=== PATIENT | female | born 1975 | race Caucasian/White ===

== ENCOUNTER → 2018-03-27 10:02 | Outpatient (CLI) | payer OTHER, SELFPAY ==
[2018-03-27 10:25] LABS: Add Manual Diff / Slide Review NO; Basophils Percent Auto 0.7 % (0-2); Eosinophils Percent Auto 2.5 % (2-4); Hematocrit 38.1 % (36-46); Hemoglobin 13.1 g/dL (12.0-16.0); Lymphocytes Percent Auto 29.9 % (25-40); Mean Corpuscular HGB Conc 34.4 % (30-36); Mean Corpuscular Hemoglobin 30.1 PG (26-34); Mean Corpuscular Volume 87.5 fL (80-100); Monocytes Percent Auto 8.4 % (3-14); Neutrophils Absolute Auto 3600 /uL (3000-5900); Neutrophils Percent Auto 58.5 % (50-75); Platelet Count 191 X10^3/uL (150-400); Red Blood Cell Count 4.36 X10^6/uL (4.0-5.2); White Blood Cell Count 6.1 X10^3/uL (4.5-11.0)
[2018-03-27 10:49] LABS: Alanine Aminotransferase 26 IU/L (9-52); Albumin 4.2 g/dL (3.5-5.0); Albumin Globulin Ratio 1.4 (1.0-2.8); Alkaline Phosphatase 62 U/L (38-126); Aspartate Aminotransferase 17 IU/L (14-36); BUN Creatinine Ratio 18.3 (6-22); Bilirubin Total 0.3 mg/dL (0.2-1.3); Blood Urea Nitrogen 11 mg/dL (7-17); Calcium 9.2 mg/dL (8.4-10.2); Carbon Dioxide 24 mmol/L (22-32); Chloride 104 mmol/L (98-107); Cholesterol 204 mg/dL (140-199); Estimated Glomerular Filt Rate > 60.0 mL/min (>60); Glucose 90 mg/dL (70-100); HDL Cholesterol 72 mg/dL (40-60); HEMOLYSIS < 15 (0-50); LDL Cholesterol Calculated 117 mg/dL (<100); Potassium 4.3 mmol/L (3.4-5.1); Sodium 141 mmol/L (137-145); Total Protein 7.2 g/dL (6.3-8.2); Triglycerides 73 mg/dL (35-150)
[2018-03-27 11:03] LABS: Vitamin D 25 Hydroxy (D3) 27.1 ng/mL (30.0-100.0)
[2018-03-27 11:04] LABS: Free T3, Triiodothyronine Free 4.56 pg/mL (2.77-5.27); Free T4, Direct Thyroxine 1.01 ng/dL (0.78-2.19)
[2018-03-27 11:18] LABS: Thyroid Stimulating Hormone 0.48 uIU/mL (0.47-4.68)
== END ==
PROVIDERS: Family Provider Family Medicine; PCP Physician Assistant; Visit Provider Physician Assistant
DX: E03.9 Hypothyroidism, unspecified (principal); E55.9 Vitamin D deficiency, unspecified; R63.5 Abnormal weight gain; Z13.220 Encounter for screening for lipoid disorders; Z13.6 Encounter for screening for cardiovascular disorders
CPT/HCPCS: 36415; 80053; 80061; 82306; 84439; 84443; 84481; 85025

== ENCOUNTER → 2018-06-02 09:24 | Outpatient (CLI) | payer OTHER, SELFPAY ==
--- NOTE | 2018-06-02 09:26 | DI.US.S_ITS ---
PROCEDURE: US PELVIC COMPLETE INDICATIONS: DUB TECHNIQUE: Real-time scanning was performed of the pelvic organs, with image documentation. Additional endovaginal scanning was necessary due to incomplete visualization of the adnexal and endometrial structures by transabdominal scanning. COMPARISON: , US, US THYROID, 06/02/2018, 9:37. FINDINGS: Transabdominal scanning: Limited scanning through the kidneys shows no hydronephrosis. No pathologic free abdominal or pelvic fluid. Endovaginal scanning: Uterus: Uterus is normal in size at 9.1 x 5.8 x 6.8 cm. The endometrium measures 9 mm in combined thickness. There is a fibroid seen along the mid uterus anteriorly, which is intramural and measures 3.2 x 1.8 x 3.2 cm. Ovaries: The right ovary measures 3.7 x 2 x 1.7 cm and demonstrates a simple appearing cyst measuring 1.6 cm, which is considered to be within physiologic limits. The left ovary measures 3.9 x 1.9 x 1.9 cm and demonstrates a complex cyst with peripheral vascularity that measures up to 1.9 cm. IMPRESSION: There is a likely left ovarian hemorrhagic cyst seen. At clinical discretion, a followup pelvic ultrasound is suggested in 6 weeks to assure resolution/ improvement. 3.2 cm uterine fibroid seen. Dictated by: Williams Miranda M.D. on 06/02/2018 at 10:59 Approved by: Willaims Miranda M.D. on 06/02/2018 at 11:00
--- NOTE | 2018-06-02 09:26 | DI.US.S_ITS ---
PROCEDURE: US THYROID INDICATIONS: NODULES; HASHIMOTOS TECHNIQUE: Real-time scanning was performed of the thyroid gland, with image documentation. COMPARISON: None. FINDINGS: There is prominent and diffusely heterogeneous. Right: Thyroid lobe measures 6.3 x 2.2 x 2.1 cm. Left: Thyroid lobe measures 4.9 x 2.2 x 2 cm. Isthmus: Or 0.5 mm thick. Nodule number: 1 Location: Left mid thyroid Size: 2.4 x 0.8 x 2.1 cm. Composition: Solid Echogenicity: Hypoechoic Shape: wider than tall. Margins: Ill-defined Echogenic foci: None Total points: 4 ACR TI-RADS category: 4, moderately suspicious. An ultrasound guided thyroid biopsy is recommended, by published criteria. Nodule number: 2 Location: Right superior thyroid Size: 3 x 1.8 x 2.1 cm, previously measuring 2.8 x 1.8 x 1.9 cm. Composition: Solid Echogenicity: Isoechoic Shape: wider than tall. Margins: Irregular Echogenic foci: None Total points: 3 ACR TI-RADS category: 3, mildly suspicious. An ultrasound guided biopsy would normally be recommended. However, this nodule was previously biopsied with benign results. Nodule number: 3 Location: Right mid thyroid Size: 1.4 x 1.2 x 1.9 cm, previously measuring 1.2 x 1.5 x 1.1 cm. Composition: Solid Echogenicity: Isoechoic Shape: wider than tall. Margins: Smooth Echogenic foci: None Total points: 5 ACR TI-RADS category: 4, moderately suspicious. An ultrasound guided biopsy would normally be recommended. However, this nodule was previously biopsied with benign results. Nodule number: 4 Location: Right inferior thyroid Size: 0.9 x 0.7 x 1.1 cm. Composition: Solid Echogenicity: Isoechoic Shape: wider than tall. Margins: Smooth Echogenic foci: None Total points: 5 ACR TI-RADS category: 4, moderately suspicious. An ultrasound followup is recommended in 1, 2, 3, and 5 years for a nodule of this size. 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 If clinically appropriate, the largest nodule on each side could be biopsied. Dictated by: Williams Miranda M.D. on 06/02/2018 at 10:52 Approved by: Williams Miranda M.D. on 06/02/2018 at 10:58
== END ==
PROVIDERS: PCP Physician Assistant; Visit Provider Physician Assistant
DX: N92.1 Excessive and frequent menstruation with irregular cycle (principal); D25.1 Intramural leiomyoma of uterus; E04.2 Nontoxic multinodular goiter; E06.3 Autoimmune thyroiditis
CPT/HCPCS: 76536; 76830; 76856

== ENCOUNTER → 2018-11-04 09:45 | Outpatient (CLI) | payer OTHER, SELFPAY ==
[2018-11-04 11:15] LABS: Free T3, Triiodothyronine Free 5.13 pg/mL (2.77-5.27); Free T4, Direct Thyroxine 1.03 ng/dL (0.78-2.19); Vitamin D 25 Hydroxy (D3) 26.6 ng/mL (30.0-100.0)
[2018-11-04 11:28] LABS: Thyroid Stimulating Hormone 0.03 uIU/mL (0.47-4.68)
== END ==
PROVIDERS: PCP Physician Assistant; Visit Provider Physician Assistant
DX: E03.9 Hypothyroidism, unspecified (principal); E55.9 Vitamin D deficiency, unspecified; F41.8 Other specified anxiety disorders; N92.0 Excessive and frequent menstruation with regular cycle; R53.83 Other fatigue
CPT/HCPCS: 36415; 82306; 84439; 84443; 84481

== ENCOUNTER → 2019-10-28 14:05 | Outpatient (CLI) | payer OTHER, SELFPAY ==
[2019-10-28 14:46] LABS: Add Manual Diff / Slide Review NO; Basophils Absolute Auto 0 /uL (0-100); Basophils Percent Auto 0.4 % (0-2); Eosinophils Absolute Auto 200 /uL (0-450); Eosinophils Percent Auto 2.1 % (2-4); Hematocrit 37.7 % (36-46); Hemoglobin 12.8 g/dL (12.0-16.0); Lymphocytes Absolute Auto 2600 /uL (1100-4500); Lymphocytes Percent Auto 29.3 % (25-40); Mean Corpuscular HGB Conc 33.9 % (30-36); Mean Corpuscular Hemoglobin 29.8 PG (26-34); Monocytes Absolute Auto 600 /uL (0-900); Monocytes Percent Auto 6.5 % (3-14); Neutrophils Absolute Auto 5600 /uL (1500-7000); Neutrophils Percent Auto 61.7 % (50-75); Platelet Count 232 X10^3/uL (150-400); Red Blood Cell Count 4.28 X10^6/uL (4.0-5.2); Red Cell Distribution Width 13.7 % (11.6-14.8)
[2019-10-28 15:06] LABS: C-Reactive Protein Quant 1.5 mg/dL (<1.0)
[2019-10-28 15:07] LABS: Rheumatoid Factor < 8.6 IU/mL (<12.0)
[2019-10-28 15:22] LABS: Free T4, Direct Thyroxine 1.04 ng/dL (0.78-2.19)
[2019-10-28 15:36] LABS: Thyroid Stimulating Hormone 0.322 uIU/mL (0.47-4.68)
[2019-10-28 16:49] LABS: Vitamin D 25 Hydroxy (D3) 17.9 ng/mL (30.0-100.0)
[2019-10-30 19:10] LABS: CCP Antibodies IgG/IgA 9 units (0-19)
[2019-10-31 21:06] LABS: ANA Screen, IFA Positive (.)
== END ==
PROVIDERS: PCP Registered Nurse Diabetes Educator; Referring Provider Registered Nurse Diabetes Educator; Visit Provider Registered Nurse Diabetes Educator
DX: E03.8 Other specified hypothyroidism (principal); E06.3 Autoimmune thyroiditis; F41.8 Other specified anxiety disorders; M25.40 Effusion, unspecified joint
CPT/HCPCS: 36415; 82306; 84439; 84443; 85025; 86038; 86140; 86200; 86430

== ENCOUNTER → 2019-11-27 09:39 | Outpatient (CLI) | payer OTHER, SELFPAY ==
--- NOTE | 2019-11-27 09:41 | DI.MRI.S_ITS ---
PROCEDURE: MR BRAIN (PITUITARY) WWO CON INDICATIONS: Biochemical evicence of central hypothyroidism. TECHNIQUE: Noncontrast sagittal and axial FLAIR, axial gradient echo, axial diffusion and ADC through the brain. Thin-slice sagittal and coronal T1 spin echo, coronal T2 fast spin echo through the pituitary. After the administration contrast, optional dynamic coronal T1 spin echo, thin-slice coronal and sagittal T1 spin echo images through the pituitary fossa; axial T1 spin echo with fat saturation through the brain. COMPARISON: None. FINDINGS: Image quality: Excellent. Pituitary Gland: There is no focal abnormal signal or enhancement within the pituitary gland. No evidence of pituitary mass lesion. Normal size and appearance of the pituitary parenchyma. Midline pituitary stalk. The sella is normal in size and appearance. No suprasellar signal abnormality. CSF Spaces: Ventricles are normal in size and shape. Basal cisterns are patent. No extra-axial fluid collections. Brain: No intracranial bleeds or mass effects. No abnormal intracranial enhancement. Gupta-white matter interface is intact. Diffusion weighted images demonstrate no acute ischemic insults. Brainstem is normal. Normal intravascular flow voids are present. Skull and face: Calvarial marrow is normal in signal. Orbits appear normal. Sinuses: Sinuses and mastoids are clear. IMPRESSION: Unremarkable MRI of the brain and pituitary. No pituitary adenoma. Dictated by: Zach Hopson M.D. on 11/27/2019 at 11:03 Approved by: Zach Hopson M.D. on 11/27/2019 at 11:07
== END ==
PROVIDERS: PCP Registered Nurse Diabetes Educator; Referring Provider Registered Nurse Diabetes Educator; Visit Provider Registered Nurse Diabetes Educator
DX: R94.6 Abnormal results of thyroid function studies (principal)
CPT/HCPCS: 70553

== ENCOUNTER → 2020-01-27 15:35 | Outpatient (CLI) | payer OTHER, SELFPAY ==
[2020-01-27 17:05] LABS: Free T4, Direct Thyroxine 1.04 ng/dL (0.78-2.19)
[2020-01-27 17:18] LABS: Thyroid Stimulating Hormone 0.322 uIU/mL (0.47-4.68)
[2020-01-27 17:20] LABS: Vitamin D 25 Hydroxy (D3) 21.8 ng/mL (30.0-100.0)
== END ==
PROVIDERS: PCP Registered Nurse Diabetes Educator; Referring Provider Registered Nurse Diabetes Educator; Visit Provider Registered Nurse Diabetes Educator
DX: E55.9 Vitamin D deficiency, unspecified (principal); F33.1 Major depressive disorder, recurrent, moderate; R94.6 Abnormal results of thyroid function studies
CPT/HCPCS: 36415; 82306; 84439; 84443; 84481

== ENCOUNTER → 2020-07-29 16:09 | Outpatient (CLI) | payer OTHER, SELFPAY ==
[2020-07-29] MEDS: COVID-19 VACC #1, MRNA(MOD) 100 MCG/0.5 ML VIAL IM (16:35)
== END ==
PROVIDERS: PCP Registered Nurse Diabetes Educator; Visit Provider Internal Medicine
DX: Z23 Encounter for immunization (principal)
CPT/HCPCS: 0011A; 91301

== ENCOUNTER → 2020-08-25 08:16 | Outpatient (CLI) | payer OTHER, SELFPAY | PROVIDERS: PCP Registered Nurse Diabetes Educator; Referring Provider Registered Nurse Diabetes Educator; Visit Provider Registered Nurse Diabetes Educator | DX: R79.89 Other specified abnormal findings of blood chemistry (principal) | CPT/HCPCS: 36415; 82306 ==

== ENCOUNTER → 2020-08-25 09:24 | Outpatient (CLI) | payer OTHER, SELFPAY ==
[2020-08-25] MEDS: COVID-19 VACC #2, MRNA(MOD) 100 MCG/0.5 ML VIAL IM (09:31)
== END ==
PROVIDERS: PCP Registered Nurse Diabetes Educator; Visit Provider Internal Medicine
DX: Z23 Encounter for immunization (principal)
CPT/HCPCS: 0012A; 91301

== ENCOUNTER → 2021-04-26 09:50 | Outpatient (CLI) | payer OTHER, SELFPAY ==
[2021-04-26 14:03] LABS: COVID19 -Nasal RAPID Negative (Negative)
== END ==
PROVIDERS: PCP Registered Nurse Diabetes Educator; Referring Provider Nurse Practitioner Family; Visit Provider Nurse Practitioner Family
DX: Z20.822 Contact with and (suspected) exposure to COVID-19 (principal); R05.9 Cough, unspecified
CPT/HCPCS: 87635

== ENCOUNTER → 2021-09-13 15:46 | Outpatient (CLI) | payer OTHER, SELFPAY ==
[2021-09-13 18:08] LABS: Vitamin D 25 Hydroxy (D3) 51.1 ng/mL (30.0-100.0)
== END ==
PROVIDERS: PCP Registered Nurse Diabetes Educator; Referring Provider Registered Nurse Diabetes Educator; Visit Provider Registered Nurse Diabetes Educator
DX: E55.9 Vitamin D deficiency, unspecified (principal)
CPT/HCPCS: 36415; 82306

== ENCOUNTER 2022-02-12 11:46 | Emergency (ER) | payer OTHER, SELFPAY ==
[2022-02-12] VITALS (11 sets, daily range): BP systolic 134–179; BP diastolic 68–99; PULSE 74–95; RESP 14–22; TEMP 36.4; O2SAT 97–100; BMI 32.1
--- NOTE | 2022-02-12 11:54 | DI.RAD.S_ITS ---
PROCEDURE: XR CHEST 1V INDICATIONS: chest pain TECHNIQUE: One view of the chest was acquired. COMPARISON: None. FINDINGS: Surgical changes and devices: None. Lungs and pleura: On this semiupright portable chest examination, no large pneumothorax or large pleural effusions are seen. No focal infiltrates are seen. Mediastinum: Mediastinal contours appear normal. Heart size is normal. Bones and chest wall: No suspicious bony lesions. Overlying soft tissues appear unremarkable. IMPRESSION: Portable chest within normal limits. Dictated by: Williams Miranda M.D. on 02/12/2022 at 11:33 Approved by: Williams Miranda M.D. on 02/12/2022 at 11:33
[2022-02-12 12:22] LABS: Add Manual Diff / Slide Review NO; Basophils Absolute Auto 0 /uL (0-100); Basophils Percent Auto 0.4 % (0-2); Eosinophils Absolute Auto 100 /uL (0-450); Eosinophils Percent Auto 2.2 % (2-4); Hematocrit 39.1 % (36-46); Hemoglobin 13.3 g/dL (12.0-16.0); Lymphocytes Absolute Auto 1900 /uL (1100-4500); Lymphocytes Percent Auto 29.7 % (25-40); Mean Corpuscular Hemoglobin 29.7 PG (26-34); Mean Corpuscular Volume 87.4 fL (80-100); Monocytes Absolute Auto 500 /uL (0-900); Monocytes Percent Auto 7.7 % (3-14); Neutrophils Absolute Auto 3900 /uL (1500-7000); Platelet Count 229 X10^3/uL (150-400); Red Blood Cell Count 4.47 X10^6/uL (4.0-5.2); Red Cell Distribution Width 12.8 % (11.6-14.8); White Blood Cell Count 6.5 X10^3/uL (4.5-11.0)
--- NOTE | 2022-02-12 12:29 | ED.ARRPALP ---
HPI - Arrhythmia/Palpitations General Chief Complaint: Arrhythmia/Palpitations Stated Complaint: chest flutters for over 24 hours, has SVT Time Seen by Provider: 02/12/22 11:59 Source: patient Mode of arrival: Ambulatory History of Present Illness HPI narrative: 46-year-old female nonsmoker with history of SVT, anxiety, adjustment disorder presents with a chief complaint of palpitations for the past few days. She denies any chest pain but has had the occasional chest pressure. She states she does not feel great but has nonspecific complaints. She is a bit weak maybe slightly lightheaded. She is had no fever or chills. Denies nausea, vomiting or diarrhea. She is had no recent travel, history of blood clot or cancer other than a small skin cancer. She denies any pain, swelling or redness in her lower extremities. She is had no travel, injury or prolonged sedentary events. She denies any change in medications, diet or stress levels Related Data Home Medications Medication Instructions Recorded Confirmed Vitamin D3 2,000 IU See Rx Instructions .Route .COMPLEX 09/21/20 09/13/21 Previous Rx's Medication Instructions Recorded aluminum chloride 20 % topical 1 applictn topical BEDTIME #60 mL 10/28/19 solution (Drysol) amitriptyline 25 mg tablet 25 mg PO BEDTIME #90 tabs 07/25/21 bupropion HCl 150 mg 24 hr tablet, 150 mg PO QAM #90 tabs 07/25/21 extended release escitalopram oxalate 10 mg tablet 15 mg PO DAILY #135 tabs 07/25/21 (Lexapro) propranolol 80 mg capsule,24 80 mg PO DAILY #90 caps 08/31/21 hr,extended release Allergies Allergy/AdvReac Type Severity Reaction Status Date / Time No Known Drug Allergies Allergy Verified 09/13/21 14:53 Review of Systems Review of Systems Narrative: GENERAL: Denies chills, fatigue, malaise, fever, sweats. HEENT: Denies sinus pain, ear pain, sore throat, difficulty swallowing, dizziness. RESPIRATORY: Denies dyspnea, cough, wheezing, hemoptysis, sputum. CARDIOVASCULAR: See HPI, GASTROINTESTINAL: Denies nausea, vomiting, abdominal pain, diarrhea, constipation, melena. : Denies dysuria, frequency, incontinence, hematuria, urinary retention. MUSCULOSKELETAL: denies weakness, joint pain, or bony pain SKIN: Denies rash, skin lesions, or other NEUROLOGIC: Denies weakness, headache, numbness, change in speech, confusion, seizures, incoordination. PSYCHIATRIC: No concerning psychosocial issues. 12 point review of systems is negative except for those stated above Patient History Medical History Abnormal Pap smear of cervix (2005) ADHD (attention deficit hyperactivity disorder) Adjustment disorder with anxiety Ankle pain (1995) Anxiety Chicken pox Chronic back pain (1999) Chronic headaches Depression Fibroids Fractures GERD (gastroesophageal reflux disease) Gaurang's disease Hayfever Hearing loss Hypothyroidism Inflammation of hand joint Irregular periods/menstrual cycles Joint swelling Migraines MRSA infection (2003) RLS (restless legs syndrome) SVT (supraventricular tachycardia) Thyroid nodule Tinnitus Surgical History Anesthesia complication History of section (2008) Family History Father Hypertension Hyperlipidemia Mental health problem Mother Skin cancer Thyroid cancer Hyperlipidemia Hypertension Brother LHON (Memo's hereditary optic neuropathy) Grandfather Skin cancer Testicular cancer Grandmother Diabetes mellitus History of heart disease Hyperlipidemia Hypertension Mental health problem Grandmother Blood clotting disorder Grandfather No problems noted. Family/Other No problems noted. Family/Other No problems noted. Family/Other No problems noted. Social History Smoking Status: Former smoker Tobacco: How many years used: 13 second hand exposure: No alcohol intake: current substance use type: does not use Smoking Status: Former smoker alcohol intake frequency: 0-2 drinks per day Exam Narrative Exam Narrative: GENERAL: [46] year old patient appears stated age. Well-developed patient, in mild distress. HEAD: Atraumatic. Normocephalic. EYES: Pupils equal round and reactive. Extraocular motions intact. No scleral icterus. No injection or drainage. ENT: Nose without bleeding, purulent drainage. Throat without erythema, tonsillar hypertrophy or exudate. Airway patent. NECK: Trachea midline. Non tender CARDIOVASCULAR: Regular rate and rhythm without murmurs, gallops, or rubs. Occasional PACs noted on monitor and palpated in accordance RESPIRATORY: Clear to auscultation. Breath sounds equal bilaterally. No wheezes, rales, or rhonchi. GASTROINTESTINAL: Abdomen soft, non-tender, nondistended. EXTREMITIES: No edema or joint tenderness. BACK: Nontender without deformity or crepitance. No flank tenderness. NEURO: AOx3. SKIN: No rash or erythema of visible areas Initial Vital Signs Initial Vital Signs: Vital Signs Temperature 97.6 F 02/12/22 11:50 Pulse Rate 95 H 02/12/22 11:50 Respiratory Rate 20 02/12/22 11:50 Blood Pressure 134/76 02/12/22 11:50 Pulse Oximetry 97 02/12/22 11:50 Oxygen Delivery Method 02/12/22 11:50 Course Orders Ordered: ED Orders 02/12/22 11:54 XR chest 1V Stat EKG-12 Lead Stat 02/12/22 12:00 EKG-12 Lead Stat 02/12/22 12:08 Complete Blood Count AUTO DIFF Stat Comprehensive Metabolic Panel Stat D Dimer Stat Free T4, Direct Thyroxine Stat Lipase Stat TSH w/ Reflex to FT4 Stat Troponin & CK Cardiac Panel Stat 02/12/22 13:31 CT angio chest PE protocol Stat Urine Microscopic Stat Sodium Chloride (Normal Saline 0.9%) 1,000 mls @ 150 mls/hr IV CONT KELSEY Last Admin: 02/12/22 12:50 Dose: 150 mls/hr Documented By: AMANDA Discontinued Medications Aspirin (Aspirin 81 Mg Chew Tab) 324 mg PO NOW ONE Stop: 02/12/22 12:00 Last Admin: 02/12/22 12:49 Dose: 324 mg Documented By: AMANDA Vital Signs Vital signs: Vital Signs - 8 hr 02/12/22 11:50 02/12/22 13:00 02/12/22 12:30 Temperature 97.6 F Pulse Rate 95 H 80 85 Respiratory Rate 20 18 18 Blood Pressure 134/76 139/85 136/89 Pulse Oximetry 97 98 98 Oxygen Delivery Method Room Air 02/12/22 13:24 02/12/22 13:25 02/12/22 13:25 Temperature Pulse Rate 91 H 84 Respiratory Rate 19 14 Blood Pressure 149/95 H Pulse Oximetry 99 100 Oxygen Delivery Method 02/12/22 13:30 02/12/22 13:30 02/12/22 13:46 Temperature Pulse Rate 81 Respiratory Rate 22 Blood Pressure 151/99 H 179/91 H Pulse Oximetry 100 Oxygen Delivery Method 02/12/22 13:46 02/12/22 14:00 02/12/22 14:00 Temperature Pulse Rate 84 79 Respiratory Rate 21 21 Blood Pressure 144/68 H Pulse Oximetry 100 100 Oxygen Delivery Method 02/12/22 14:30 02/12/22 14:30 Temperature Pulse Rate 76 Respiratory Rate 19 Blood Pressure 147/81 H Pulse Oximetry 100 Oxygen Delivery Method MDM - Arrhythmia/Palpitations Lab Data Result diagrams: 02/12/22 12:08 02/12/22 12:08 Labs: Lab Results 02/12/22 02/12/22 02/12/22 Range/Units 12:08 12:08 12:08 WBC 6.5 (4.5-11.0) X10^3/uL RBC 4.47 (4.0-5.2) X10^6/uL Hgb 13.3 (12.0-16.0) g/dL Hct 39.1 (36-46) % MCV 87.4 (80-100) fL MCH 29.7 (26-34) PG MCHC 34.0 (30-36) % RDW 12.8 (11.6-14.8) % Plt Count 229 (150-400) X10^3/uL Neut % (Auto) 60.0 (50-75) % Lymph % (Auto) 29.7 (25-40) % [place] % (Auto) 7.7 (3-14) % Eos % (Auto) 2.2 (2-4) % Baso % (Auto) 0.4 (0-2) % Neut # (Auto) 3900 (8479-6275) /uL Lymph # (Auto) 1900 (6795-8541) /uL [place] # (Auto) 500 (0-900) /uL Eos # (Auto) 100 (0-450) /uL Baso # (Auto) 0 (0-100) /uL D-Dimer 804 H (<500) ng/ml Sodium (137-145) mmol/L Potassium (3.4-5.1) mmol/L Chloride (98-107) mmol/L Carbon Dioxide (22-32) mmol/L BUN (7-17) mg/dL Creatinine (0.52-1.04) mg/dL Estimated GFR (>60) mL/min BUN/Creatinine Ratio (6-22) Glucose (70-100) mg/dL Calcium (8.4-10.2) mg/dL Total Bilirubin (0.2-1.3) mg/dL AST (14-36) IU/L ALT (<35) IU/L Alkaline Phosphatase (38-126) U/L Total Creatine Kinase (30-135) U/L CK-MB (CK-2) CK-MB (CK-2) Rel Index Troponin I (0.01-0.034) ng/mL Total Protein (6.3-8.2) g/dL Albumin (3.5-5.0) g/dL Globulin (1.7-4.1) g/dL Albumin/Globulin Ratio (1.0-2.8) Lipase (23-300) U/L TSH < 0.02 L (0.47-4.68) uIU/mL Free T4 1.28 (0.78-2.19) ng/dL 02/12/22 Range/Units 12:08 WBC (4.5-11.0) X10^3/uL RBC (4.0-5.2) X10^6/uL Hgb (12.0-16.0) g/dL Hct (36-46) % MCV (80-100) fL MCH (26-34) PG MCHC (30-36) % RDW (11.6-14.8) % Plt Count (150-400) X10^3/uL Neut % (Auto) (50-75) % Lymph % (Auto) (25-40) % [place] % (Auto) (3-14) % Eos % (Auto) (2-4) % Baso % (Auto) (0-2) % Neut # (Auto) (0341-0397) /uL Lymph # (Auto) (5413-9590) /uL [place] # (Auto) (0-900) /uL Eos # (Auto) (0-450) /uL Baso # (Auto) (0-100) /uL D-Dimer (<500) ng/ml Sodium 139 (137-145) mmol/L Potassium 3.7 (3.4-5.1) mmol/L Chloride 103 (98-107) mmol/L Carbon Dioxide 27 (22-32) mmol/L BUN 10 (7-17) mg/dL Creatinine 0.65 (0.52-1.04) mg/dL Estimated GFR > 60 (>60) mL/min BUN/Creatinine Ratio 15.4 (6-22) Glucose 104 H (70-100) mg/dL Calcium 8.9 (8.4-10.2) mg/dL Total Bilirubin 0.3 (0.2-1.3) mg/dL AST 24 (14-36) IU/L ALT 23 (<35) IU/L Alkaline Phosphatase 78 (38-126) U/L Total Creatine Kinase 36 (30-135) U/L CK-MB (CK-2) TNP CK-MB (CK-2) Rel Index TNP Troponin I < 0.012 (0.01-0.034) ng/mL Total Protein 7.3 (6.3-8.2) g/dL Albumin 3.9 (3.5-5.0) g/dL Globulin 3.4 (1.7-4.1) g/dL Albumin/Globulin Ratio 1.1 (1.0-2.8) Lipase 69 (23-300) U/L TSH (0.47-4.68) uIU/mL Free T4 (0.78-2.19) ng/dL Point of Care Testing Test Results Negative Urine Dip Bedside Urine Glucose Negative Bedside Urine Bilirubin - Negative Bedside Urine Ketone - Negative Urine Specific [place] 1.005 Bedside Urine Occult Blood +++ Bedside Urine pH 6 Bedside Urine Protein - Negative Bedside Urine Urobilinogen - Negative Bedside Urine Nitrite - Negative Bedside Urine Leukocytes - Negative Esterase Imaging Data CT scan - chest: Radiologist's Impresson: Close Chest CTA (Signed) Williams Miranda - 02/12/22 Chest X-Ray (Signed) Williams Miranda - 02/12/22 Launch?[place] [address] CT Scan Report Signed Patient: Aubrie Nolasco MR#: [id number] : 1975 Acct:[id number] Age/Sex: 46 / F Date of Service: 02/12/22 Loc: ED Accession Number: [id number] ?? Procedure: CT angio chest PE protocol Ordering Provider: Willie Taylor D.O. PROCEDURE:? CT ANGIO CHEST PE PROTOCOL ? INDICATIONS:? palpitations, chest discomfort, critical D dimer ? TECHNIQUE:? After the administration of intravenous contrast, 2 mm thick sections acquired from the pulmonary apices to the posterior costophrenic angles.? 3-dimensional maximum intensity projection (MIP) coronal and sagittal reformats were then acquired through the thorax.? For radiation dose reduction, the following was used:? automated exposure control, adjustment of mA and/or kV according to patient size.? ? COMPARISON:? [facility], CR, XR CHEST 1V, 02/12/2022, 12:14. ? FINDINGS:? Image quality:? Excellent.? ? Pulmonary arteries:? Pulmonary arteries are normal in size, and demonstrate no intraluminal filling defects to suggest central pulmonary embolism.? ? Lungs and pleura:? Lungs are clear.? No pleural effusions or pneumothorax.? Central and peripheral airways are patent.? ? Mediastinum:? Heart size is normal, without pericardial effusion.? No mediastinal or hilar adenopathy.? Thoracic aorta is normal in caliber and enhancement. Incidental note is made of a common origin of the right brachiocephalic artery and the left common carotid artery (bovine type arch). 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 Esophagus is normal in caliber.? There is a moderate hiatal hernia.? ? Bones and chest wall:? No suspicious bony lesions.? Ribs and thoracic spine appear intact throughout.? 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 Thyroid gland demonstrates a 2 cm right thyroid nodule. ?No axillary or supraclavicular adenopathy.? ? Abdomen:? Visualized upper abdominal solid organs appear normal in the early arterial phase of enhancement.? IMPRESSION:? Negative for pulmonary embolism. ? 2 cm right thyroid nodule noted.? If clinically appropriate, please consider a follow-up thyroid ultrasound for further evaluation. ? Focal C6-C7 degenerative change seen.? Please consider follow-up cervical spine MRI for further evaluation, if clinically appropriate. ? ? ? Incidental note is made of: Bovine type aortic branching pattern Moderate hiatal hernia ? Dictated by: Williams Miranda M.D. on 02/12/2022 at 12:52 ? ? Approved by: Williams Miranda M.D. on 02/12/2022 at 12:54 ? ECG Data Interpretation: [1157] EKG is normal sinus rhythm rate [91 ] and free of any signs of ischemia, occasional PACs. No ST segmental elevation or depression. No T wave inversions Discharge Plan Departure Patient Disposition: Home Clinical Impression: PAC (premature atrial contraction) Instructions: DI for Palpitations Activity Restrictions/Additional Instructions: *You have been diagnosed with [palpitations due to premature atrial contractions.] *What to do: *Please continue to take your regular medications as directed. *Please follow up with your primary care provider in 2-3 days, call for an appointment. Let them know you were seen in the Emergency Department and that we ask that you be seen in follow up. We will electronically transmit a record of today's note if your PCP is in our system *Please try to get sufficient sleep and stay well hydrated. Try to avoid significant caffeine, nicotine, alcohol and other stimulants. *Return to Emergency Department if you should have any new, worsening or concerning symptoms, such as [fever greater than 101 F, shaking chills, worsening pain, persistent vomiting or other bothersome symptoms] Prescriptions: No Action Vitamin D3 2,000 IU See Rx Instructions .ROUTE .COMPLEX Label Comments: 2 TABS PO QDAY Rx Instructions: 1 TABS PO QDAY amitriptyline 25 mg tablet 25 mg PO BEDTIME Qty: 90 3RF bupropion HCl 150 mg tablet extended release 24 hr 150 mg PO QAM Qty: 90 3RF escitalopram oxalate [Lexapro] 10 mg tablet 15 mg PO DAILY Qty: 135 3RF propranolol 80 mg capsule,extended release 24 hr 80 mg PO DAILY Qty: 90 1RF aluminum chloride [Drysol] 20 % solution 1 applictn TOP BEDTIME Qty: 60 2RF Rx Instructions: Wash treated area in the morning. Referrals: Kevin Siddiqui ARNP [Primary Care Provider] -
[2022-02-12 12:32] LABS: D Dimer 804 ng/ml (<500)
[2022-02-12 12:37] LABS: Alanine Aminotransferase 23 IU/L (<35); Albumin 3.9 g/dL (3.5-5.0); Albumin Globulin Ratio 1.1 (1.0-2.8); Alkaline Phosphatase 78 U/L (38-126); Aspartate Aminotransferase 24 IU/L (14-36); BUN Creatinine Ratio 15.4 (6-22); Bilirubin Total 0.3 mg/dL (0.2-1.3); Blood Urea Nitrogen 10 mg/dL (7-17); Calcium 8.9 mg/dL (8.4-10.2); Carbon Dioxide 27 mmol/L (22-32); Chloride 103 mmol/L (98-107); Creatine Kinase 36 U/L (30-135); Estimated Glomerular Filt Rate > 60 mL/min (>60); Globulin 3.4 g/dL (1.7-4.1); Glucose 104 mg/dL (70-100); HEMOLYSIS < 15 (0-50); Lipase 69 U/L (23-300); Potassium 3.7 mmol/L (3.4-5.1); Sodium 139 mmol/L (137-145); Total Protein 7.3 g/dL (6.3-8.2)
[2022-02-12 12:48] LABS: Troponin I < 0.012 ng/mL (0.01-0.034)
[2022-02-12] MEDS: ASPIRIN 81 MG CHEW TAB 324 MG PO (12:49)
[2022-02-12] MEDS: SODIUM CHLORIDE 0.9% 1,000 ML 150 ML IV (12:50)
[2022-02-12 13:08] LABS: TSH w/ Reflex to FT4 < 0.02 uIU/mL (0.47-4.68)
--- NOTE | 2022-02-12 13:31 | DI.CT.S_ITS ---
PROCEDURE: CT ANGIO CHEST PE PROTOCOL INDICATIONS: palpitations, chest discomfort, critical D dimer TECHNIQUE: After the administration of intravenous contrast, 2 mm thick sections acquired from the pulmonary apices to the posterior costophrenic angles. 3-dimensional maximum intensity projection (MIP) coronal and sagittal reformats were then acquired through the thorax. For radiation dose reduction, the following was used: automated exposure control, adjustment of mA and/or kV according to patient size. COMPARISON: [facility], CR, XR CHEST 1V, 02/12/2022, 12:14. FINDINGS: Image quality: Excellent. Pulmonary arteries: Pulmonary arteries are normal in size, and demonstrate no intraluminal filling defects to suggest central pulmonary embolism. Lungs and pleura: Lungs are clear. No pleural effusions or pneumothorax. Central and peripheral airways are patent. Mediastinum: Heart size is normal, without pericardial effusion. No mediastinal or hilar adenopathy. Thoracic aorta is normal in caliber and enhancement. Incidental note is made of a common origin of the right brachiocephalic artery and the left common carotid artery (bovine type arch). 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 Esophagus is normal in caliber. There is a moderate hiatal hernia. Bones and chest wall: No suspicious bony lesions. Ribs and thoracic spine appear intact throughout. 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 Thyroid gland demonstrates a 2 cm right thyroid nodule. No axillary or supraclavicular adenopathy. Abdomen: Visualized upper abdominal solid organs appear normal in the early arterial phase of enhancement. IMPRESSION: Negative for pulmonary embolism. 2 cm right thyroid nodule noted. If clinically appropriate, please consider a follow-up thyroid ultrasound for further evaluation. Focal C6-C7 degenerative change seen. Please consider follow-up cervical spine MRI for further evaluation, if clinically appropriate. Incidental note is made of: Bovine type aortic branching pattern Moderate hiatal hernia Dictated by: Williams Miranda M.D. on 02/12/2022 at 12:52 Approved by: Williams Miranda M.D. on 02/12/2022 at 12:54
[2022-02-12 13:34] LABS: Free T4, Direct Thyroxine 1.28 ng/dL (0.78-2.19)
== END 2022-02-12 15:16 | disposition home or self-care (01) ==
PROVIDERS: Emergency Provider Emergency Medicine; PCP Registered Nurse Diabetes Educator
DX: I49.1 Atrial premature depolarization (principal); R07.9 Chest pain, unspecified
CPT/HCPCS: 36415; 71045; 71275; 80053; 81003; 81025; 82550; 83690; 84439; 84443; 84484; 85025; 85379; 93005; 99284

== ENCOUNTER → 2022-03-12 10:34 | Outpatient (CLI) | payer OTHER, SELFPAY ==
--- NOTE | 2022-03-12 10:36 | DI.US.S_ITS ---
PROCEDURE: US THYROID INDICATIONS: f/u nodule TECHNIQUE: Real-time scanning was performed of the thyroid gland, with image documentation. COMPARISON: [facility], US, US THYROID, 06/02/2018, 9:37. FINDINGS: Right: Thyroid lobe measures 6.3 x 2.1 x 3 point cm, and is heterogeneous in echotexture. Left: Thyroid lobe measures 5.6 x 2.0 x 1.9 cm, and is heterogeneous in echotexture. Isthmus: 4 mm thick. Nodule number: 1 Location: Left lobe mid medial Size: 2.9 x 0.8 x 2.4 cm. Previously 2.4 x 0.8 x 2.1 cm not significantly changed Composition: Solid Echogenicity: Hypoechoic Shape: wider than tall. Margins: Smooth Echogenic foci: None Total points: 4 ACR TI-RADS category: 4 Nodule number: 2 Location: Right lobe superior Size: 3.4 x 2.1 x 2.6 cm. Previously 3.0 x 1.8 x 2.1 cm. Not significantly changed Composition: Predominantly solid Echogenicity: Isoechoic Shape: wider than tall. Margins: Smooth Echogenic foci: None Total points: 3 ACR TI-RADS category: 3 Nodule number: 3 Location: Right lobe mid Size: 1.1 x 1.2 x 1.5 cm. Previously 1.4 x 1.2 x 1.9 cm no significant change Composition: Solid Echogenicity: Isoechoic Shape: wider than tall. Margins: Ill-defined Echogenic foci: None Total points: 3 ACR TI-RADS category: 3 Nodule number: 4 Location: Right lobe inferior Size: 1.0 x 0.9 x 1.0 cm. Previously 0.9 x 0.7 x 1.1 cm no significant change Composition: Solid Echogenicity: Isoechoic Shape: wider than tall. Margins: Ill-defined Echogenic foci: None Total points: 3 ACR TI-RADS category: 3 IMPRESSION: 1. Nodule #1 at the left lobe of the thyroid gland meets TI-RADS criteria for FNA recommendation. It is not significantly changed since the previous exam. 2. Nodule #2 at the right superior lobe of the thyroid gland meets TI-RADS criteria for FNA recommendation. It is not significantly changed since the previous exam. 3. Other nodules do not meet TI-RADS criteria for FNA recommendation. Follow-up is recommended as below. ACR TI-RADS definitions and recommendations: TI-RADS 1 (benign): 0 points. FNA not needed. TI-RADS 2 (not suspicious): 2 points. FNA not needed. TI-RADS 3 (mildly suspicious): 3 points. * FNA if 2.5 cm or larger, follow up if 1.5 cm or larger (at 1, 3, and 5 years). TI-RADS 4 (moderately suspicious): 4-6 points. * FNA if 1.5 cm or larger, follow up if 1 cm or larger (at 1, 2, 3, and 5 years). TI-RADS 5 (highly suspicious): 7 points or more. * FNA if 1 cm or larger, follow up if 0.5 cm or larger (every year for 5 years). Dictated by: Indra Johnson M.D. on 03/12/2022 at 14:22 Approved by: Indra Johnson M.D. on 03/12/2022 at 14:36
== END ==
PROVIDERS: PCP Registered Nurse Diabetes Educator; Referring Provider Registered Nurse Diabetes Educator; Visit Provider Registered Nurse Diabetes Educator
DX: E04.2 Nontoxic multinodular goiter (principal); R00.2 Palpitations; R79.89 Other specified abnormal findings of blood chemistry
CPT/HCPCS: 36415; 76536; 83735; 84445; 84481

== ENCOUNTER → 2022-03-12 11:03 | Outpatient (CLI) | payer OTHER, SELFPAY ==
[2022-03-15 13:09] LABS: Thyroid Stimulating Immunoglob < 0.10 IU/L (0.00-0.55)
== END ==
PROVIDERS: PCP Registered Nurse Diabetes Educator; Referring Provider Registered Nurse Diabetes Educator; Visit Provider Registered Nurse Diabetes Educator
DX: R00.2 Palpitations (principal); R79.89 Other specified abnormal findings of blood chemistry
CPT/HCPCS: 36415; 83735; 84445; 84481

== ENCOUNTER → 2023-02-18 14:15 | Outpatient (CLI) | payer OTHER, SELFPAY ==
[2023-02-18 15:19] LABS: Add Manual Diff / Slide Review NO; Basophils Absolute Auto 100 /uL (0-100); Basophils Percent Auto 0.7 % (0-2); Eosinophils Absolute Auto 200 /uL (0-450); Eosinophils Percent Auto 2.1 % (2-4); Hematocrit 40.9 % (36-46); Hemoglobin 13.9 g/dL (12.0-16.0); Lymphocytes Absolute Auto 2500 /uL (1100-4500); Lymphocytes Percent Auto 28.2 % (25-40); Mean Corpuscular Volume 88.1 fL (80-100); Monocytes Absolute Auto 900 /uL (0-900); Monocytes Percent Auto 9.9 % (3-14); Neutrophils Absolute Auto 5200 /uL (1500-7000); Neutrophils Percent Auto 59.1 % (50-75); Platelet Count 232 X10^3/uL (150-400); Red Blood Cell Count 4.64 X10^6/uL (4.0-5.2); Red Cell Distribution Width 13.2 % (11.6-14.8); White Blood Cell Count 8.7 X10^3/uL (4.5-11.0)
[2023-02-18 15:35] LABS: Appearance Urine UA CLEAR; Bilirubin Urine UA NEGATIVE (NEGATIVE); Color Urine UA YELLOW; Glucose Urine UA NEGATIVE (Negative); Ketones Urine UA NEGATIVE (NEGATIVE); Leukocyte Esterase Urine UA 1+ (NEGATIVE); Nitrite Urine UA NEGATIVE (Negative); Occult Blood Urine UA 2+ (Negative); Protein Urine UA NEGATIVE (Negative); Urobilinogen Urine UA 0.2 E.U./dL (0.2)
[2023-02-18 15:36] LABS: Alanine Aminotransferase 20 IU/L (<35); Albumin 4.1 g/dL (3.5-5.0); Albumin Globulin Ratio 1.2 (1.0-2.8); Alkaline Phosphatase 68 U/L (38-126); Aspartate Aminotransferase 21 IU/L (14-36); BUN Creatinine Ratio 17.5 (6-22); Bilirubin Total 0.3 mg/dL (0.2-1.3); Blood Urea Nitrogen 11 mg/dL (7-17); C-Reactive Protein Quant 1.1 mg/dL (<1.0); Calcium 10.1 mg/dL (8.4-10.2); Carbon Dioxide 27 mmol/L (22-32); Chloride 100 mmol/L (98-107); Estimated Glomerular Filt Rate > 60 mL/min (>60); Globulin 3.4 g/dL (1.7-4.1); Glucose 79 mg/dL (70-100); HEMOLYSIS < 15 (0-50); Sodium 136 mmol/L (137-145); Total Protein 7.5 g/dL (6.3-8.2)
[2023-02-18 15:45] LABS: pH Urine UA 5.5 (4.5-8.0)
[2023-02-18 15:47] LABS: Bacteria Urine Few (2-10); Culture Indicated Urine Specimen Cultured; RBC Urine 1-5/HPF (0-5/HPF); Rheumatoid Factor < 8.6 IU/mL (<12.0); Squamous Epithelial Cell Urine 1-5 /HPF (0-5/HPF); WBC Urine 5-10/HPF (0-5/HPF)
[2023-02-18 15:50] LABS: Free T4, Direct Thyroxine 1.23 ng/dL (0.78-2.19)
[2023-02-18 15:53] LABS: Erythrocyte Sedimentation Rate 28 MM/HR (0-20)
[2023-02-18 16:05] LABS: Thyroid Stimulating Hormone < 0.015 uIU/mL (0.47-4.68)
[2023-02-19 20:38] LABS: CCP Antibodies IgG/IgA 1 units (0-19)
[2023-02-21 14:35] LABS: ANA Screen, IFA Positive (.)
[2023-02-23 11:29] LABS: Parvovirus B19 PCR Negative (Negative)
[2023-02-25 11:39] LABS: HLA B27 Negative (.)
== END ==
PROVIDERS: PCP Registered Nurse Diabetes Educator; Referring Provider Registered Nurse Diabetes Educator; Visit Provider Registered Nurse Diabetes Educator
DX: M25.40 Effusion, unspecified joint (principal); M25.50 Pain in unspecified joint; M54.50 Low back pain, unspecified; E03.8 Other specified hypothyroidism; E06.3 Autoimmune thyroiditis
CPT/HCPCS: 36415; 80053; 81001; 81374; 84439; 84443; 85025; 85651; 86038; 86140; 86200; 86430; 87086; 87798

== ENCOUNTER → 2023-05-13 09:02 | Outpatient (CLI) | payer OTHER, SELFPAY ==
--- NOTE | 2023-05-13 09:03 | DI.RAD.S_ITS ---
PROCEDURE: XR CHEST 2V INDICATIONS: persistent cough TECHNIQUE: 2 views of the chest were acquired. COMPARISON: [facility], , XR CHEST 1V, 02/12/2022, 12:14. FINDINGS: Surgical changes and devices: None. Lungs and pleura: Lungs are clear. No pleural effusions or pneumothorax. Mediastinum: Mediastinal contours are normal. Heart size is normal. Bones and chest wall: No suspicious bony abnormalities. Soft tissues appear unremarkable. IMPRESSION: No acute cardiopulmonary abnormality is seen. Approved by: Poly Keita M.D. on 05/13/2023 at 11:26
== END ==
PROVIDERS: PCP Registered Nurse Diabetes Educator; Referring Provider Registered Nurse Diabetes Educator; Visit Provider Registered Nurse Diabetes Educator
DX: R05.3 Chronic cough (principal)
CPT/HCPCS: 71046

== ENCOUNTER → 2023-07-17 13:18 | Outpatient (CLI) | payer OTHER, SELFPAY ==
--- NOTE | 2023-07-17 13:20 | DI.RAD.S_ITS ---
PROCEDURE: XR HIP W PEL IF DONE RT 2V INDICATIONS: sharp groin pain, limping TECHNIQUE: AP pelvis with lateral view(s) of the right hip(s). COMPARISON: None. FINDINGS: Bones: No fractures or dislocations. Pelvic ring appears intact. No suspicious bony lesions. Mild osteoarthritic changes noted. Soft tissues: The visualized bowel gas pattern is normal. No suspicious soft tissue calcifications. IMPRESSION: 1. No acute bony abnormality. 2. Mild osteoarthritis. 3. If clinical symptoms persist or clinical suspicion for internal derangement is high, consider MRI for further evaluation. Dictated by: Randy Marcum M.D. on 07/17/2023 at 17:06 Approved by: Randy Marcum M.D. on 07/18/2023 at 8:39
== END ==
PROVIDERS: PCP Registered Nurse Diabetes Educator; Referring Provider Physician Assistant; Visit Provider Physician Assistant
DX: S76.211A Strain of adductor muscle, fascia and tendon of right thigh, initial encounter (principal); M16.11 Unilateral primary osteoarthritis, right hip; X58.XXXA Exposure to other specified factors, initial encounter
CPT/HCPCS: 73502

== ENCOUNTER → 2024-01-17 10:28 | Outpatient (CLI) | payer OTHER, SELFPAY ==
[2024-01-17 10:52] LABS: Hematocrit 41.4 % (36-46); Hemoglobin 13.8 g/dL (12.0-16.0); Mean Corpuscular HGB Conc 33.3 % (30-36); Mean Corpuscular Hemoglobin 28.9 PG (26-34); Mean Corpuscular Volume 86.8 fL (80-100); Platelet Count 250 X10^3/uL (150-400); Red Blood Cell Count 4.77 X10^6/uL (4.0-5.2); White Blood Cell Count 8.5 X10^3/uL (4.5-11.0)
[2024-01-17 11:17] LABS: Alanine Aminotransferase 18 IU/L (<35); Albumin 4.2 g/dL (3.5-5.0); Albumin Globulin Ratio 1.5 (1.0-2.8); Alkaline Phosphatase 75 U/L (38-126); Aspartate Aminotransferase 21 IU/L (14-36); BUN Creatinine Ratio 21.7 (6-22); Bilirubin Total 0.6 mg/dL (0.2-1.3); Blood Urea Nitrogen 15 mg/dL (7-17); Calcium 9.6 mg/dL (8.4-10.2); Carbon Dioxide 26 mmol/L (22-32); Chloride 105 mmol/L (98-107); Cholesterol 252 mg/dL (140-199); Estimated Glomerular Filt Rate > 60 mL/min (>60); Globulin 2.8 g/dL (1.7-4.1); Glucose 108 mg/dL (70-100); HDL Cholesterol 54 mg/dL (40-60); HEMOLYSIS < 15 (0-50); LDL Cholesterol Calculated 171 mg/dL (<100); Potassium 4.6 mmol/L (3.4-5.1); Sodium 137 mmol/L (137-145); Triglycerides 135 mg/dL (35-150)
[2024-01-17 11:31] LABS: Free T3, Triiodothyronine Free 4.77 pg/mL (2.77-5.27); Free T4, Direct Thyroxine 1.16 ng/dL (0.78-2.19)
[2024-01-17 11:47] LABS: Thyroid Stimulating Hormone < 0.015 uIU/mL (0.47-4.68)
== END ==
PROVIDERS: PCP Registered Nurse Diabetes Educator; Referring Provider Registered Nurse Diabetes Educator; Visit Provider Registered Nurse Diabetes Educator
DX: E05.90 Thyrotoxicosis, unspecified without thyrotoxic crisis or storm (principal); E78.5 Hyperlipidemia, unspecified; M25.40 Effusion, unspecified joint
CPT/HCPCS: 36415; 80053; 80061; 84439; 84443; 84481; 85027

== ENCOUNTER → 2024-01-22 08:02 | Outpatient (CLI) | payer OTHER, SELFPAY ==
--- NOTE | 2024-01-22 08:04 | DI.MG.S_ITS ---
BILATERAL DIGITAL SCREENING MAMMOGRAM 3D/2D WITH CAD: 01/22/2024 CLINICAL: Baseline exam. Routine screening. No prior exams were available for comparison. The breasts are heterogeneously dense, which may obscure small masses (category c / 51-75% glandular tissue). Current study was also evaluated with a Computer Aided Detection (CAD) system. There is a possible oval equal density focal asymmetry with an obscured margin in the left breast at 12 o'clock middle depth. No other significant masses, calcifications, or other findings are seen in either breast. IMPRESSION: INCOMPLETE: NEED ADDITIONAL IMAGING EVALUATION The possible oval equal density focal asymmetry in the left breast is indeterminate. Additional views with possible ultrasound are recommended. Based on the Tyrer Cuzick model (a risk assessment model) the patient's lifetime risk is 4.8% and her 10 year risk is 0.9%. According to the ACR, ACS, and NCCN guidelines, an annual breast MRI exam along with mammogram is recommended if the patient's lifetime risk is 20% or greater. This exam was interpreted at Station ID: [id number]. NOTE: For mammograms, a report in lay terms will be sent to the patient. Approximately 15% of breast malignancies will not be visualized mammographically. In the management of a palpable breast mass, a negative mammogram must not discourage biopsy of a clinically suspicious lesion. Electronically Signed By: Anatoliy whyte/julee:01/22/2024 09:52:00 letter sent: Additional Imaging Needed ACR BI-RADS Category 0: Incomplete: Need Additional Imaging Evaluation
--- NOTE | 2024-01-22 08:04 | DI.NM.S_ITS ---
PROCEDURE: NM UPTAKE AND SCAN RADIOPHARMACEUTICAL: 13.9 ?Ci I-123 sodium iodide by mouth. INDICATIONS: eval subclinical hyperthyroidism TECHNIQUE: I-123 sodium iodide was administered orally. Anterior neck images were obtained, and iodine uptake by the thyroid gland calculated using mechanical systems engineer's software. COMPARISON: None. FINDINGS: Morphology: The thyroid gland has asymmetric activity, increased on the right and significantly decreased on the left. No 'cold' or 'hot' thyroid nodules are identified. Uptake: 6 hour thyroid uptake is 32 percent (31 percent on the right and 1 percent on the left); normal ranges are from 6-18%. 24 hour thyroid uptake is 53 percent (50 percent on the right and 3 percent on the left); normal ranges are from 10-30%. IMPRESSION: Asymmetric radiotracer uptake in the right thyroid lobe, which demonstrates increased radiotracer uptake. This is likely due to the presence the large right thyroid nodule, which may represent a toxic autonomous nodule. Recommend endocrinology referral. Dictated by: Rito Mendoza M.D. on 01/23/2024 at 13:02 Approved by: Rito Mendoza M.D. on 01/23/2024 at 13:09
== END ==
LOC: MAMMO 08:03
PROVIDERS: PCP Registered Nurse Diabetes Educator; Referring Provider Registered Nurse Diabetes Educator; Visit Provider Registered Nurse Diabetes Educator
DX: Z12.31 Encounter for screening mammogram for malignant neoplasm of breast (principal); R92.333 Mammographic heterogeneous density, bilateral breasts; E05.90 Thyrotoxicosis, unspecified without thyrotoxic crisis or storm; R94.6 Abnormal results of thyroid function studies; E04.1 Nontoxic single thyroid nodule
CPT/HCPCS: 77063; 77067; 78014; A9516

== ENCOUNTER → 2024-01-23 10:14 | Outpatient (CLI) | payer OTHER, SELFPAY ==
--- NOTE | 2024-01-23 10:15 | DI.US.S_ITS ---
PROCEDURE: US THYROID INDICATIONS: eval subclinical hyperthyroidism TECHNIQUE: Real-time scanning was performed of the thyroid gland, with image documentation. COMPARISON: [facility], US, US THYROID, 03/12/2022, 10:48. FINDINGS: Thyroid: Right lobe measures 5.3 x 2.2 x 3.2 cm. Left lobe measures 5.5 x 1.9 x 1.5 cm. Isthmus is 0.4 cm thick. Echotexture is heterogeneous. Nodule number: 1 Location: Left mid Size: 2.5 x 0.7 x 2.2 cm, previously 2.9 x 0.8 x 2.4 cm. Composition: Solid Echogenicity: Hypoechoic Shape: Wider than tall Margins: Smooth Echogenic foci: None Total points: 4 ACR TI-RADS category: Moderately suspicious Nodule number: 2 Location: Right superior Size: 3.4 x 2.2 x 2.3 cm, previously 3.4 x 2.1 x 2.6 cm. Composition: Solid Echogenicity: Hypoechoic Shape: wider than tall. Margins: Smooth Echogenic foci: None Total points: 4 ACR TI-RADS category: Moderately suspicious Nodule number: 3 Location: Right mid Size: 1.2 x 1.3 x 1.7 cm, previously 1.1 x 1.2 x 1.5 cm. Composition: Solid Echogenicity: Isoechoic Shape: wider than tall. Margins: Smooth Echogenic foci: None Total points: 3 ACR TI-RADS category: Mildly suspicious Nodule number: 4 Location: Right lateral Size: 1.3 x 0.9 x 1.6 cm, previously 1.0 x 0.9 x 1.0 cm Composition: Solid Echogenicity: Hypoechoic Shape: wider than tall. Margins: Smooth of Echogenic foci: None Total points: 4 ACR TI-RADS category: Moderately suspicious Nodule number: 5 Location: Left inferior Size: 0.7 x 0.6 x 0.8 cm Composition: Solid Echogenicity: Hypoechoic Shape: wider than tall. Margins: Smooth of Echogenic foci: None Total points: 4 ACR TI-RADS category: Moderately suspicious IMPRESSION: Multiple moderately suspicious bilateral thyroid nodules. Recommend ultrasound-guided fine needle aspiration of the 2 largest moderately suspicious nodules (nodule #1 and nodule #2) per guidelines below, overall these nodules are not significantly changed since prior. Remainder of nodules meet criteria for imaging follow-up as outlined ACR TI-RADS definitions and recommendations: TI-RADS 1 (benign): 0 points. FNA not needed. TI-RADS 2 (not suspicious): 2 points. FNA not needed. TI-RADS 3 (mildly suspicious): 3 points. * FNA if 2.5 cm or larger, follow up if 1.5 cm or larger (at 1, 3, and 5 years). TI-RADS 4 (moderately suspicious): 4-6 points. * FNA if 1.5 cm or larger, follow up if 1 cm or larger (at 1, 2, 3, and 5 years). TI-RADS 5 (highly suspicious): 7 points or more. * FNA if 1 cm or larger, follow up if 0.5 cm or larger (every year for 5 years). Approved by: Poly Keita M.D.,Ph.D. on 01/24/2024 at 3:57
== END ==
PROVIDERS: PCP Registered Nurse Diabetes Educator; Referring Provider Registered Nurse Diabetes Educator; Visit Provider Registered Nurse Diabetes Educator
DX: E05.90 Thyrotoxicosis, unspecified without thyrotoxic crisis or storm (principal); R94.6 Abnormal results of thyroid function studies; E04.2 Nontoxic multinodular goiter
CPT/HCPCS: 76536

== ENCOUNTER → 2024-02-04 11:16 | Outpatient (CLI) | payer OTHER, SELFPAY ==
[2024-02-04 14:42] LABS: Vitamin D 25 Hydroxy (D3) 47.5 ng/mL (30.0-100.0)
== END ==
PROVIDERS: PCP Registered Nurse Diabetes Educator; Referring Provider Registered Nurse Diabetes Educator; Visit Provider Registered Nurse Diabetes Educator
DX: E55.9 Vitamin D deficiency, unspecified (principal)
CPT/HCPCS: 36415; 82306

== ENCOUNTER → 2024-08-25 08:44 | Outpatient (CLI) | payer OTHER, SELFPAY ==
--- NOTE | 2024-08-25 08:46 | DI.US.S_ITS ---
MM special view LT, US breast LT limited: 08/25/2024 BI-RADS: 3 CLINICAL: 48-year old female for left diagnostic mammogram and left diagnostic breast ultrasound. Tyrer-Cuzick lifetime risk of 12.5%. No personal or first-degree family history of breast cancer. PRIOR EXAMS 01/22/2024. MAMMOGRAPHY TECHNIQUE: 2D and 3D (tomosynthesis) digital mammographic views obtained, with additional images as needed for full coverage. Current study was also evaluated with a Computer Aided Detection (CAD) system. ULTRASOUND TECHNIQUE Real-time santiago scale and color doppler imaging of the area of clinical interest was performed with image documentation. TARGETED Left Breast Ultrasound: Real-time ultrasound exam was performed focused to area of clinical and/or imaging concern. DENSITY Left: C. The breasts are heterogeneously dense, which may obscure small masses. MAMMOGRAPHY FINDINGS Left (finding-1): CC only, Central, Middle depth: There is an asymmetry seen only on one view. ULTRASOUND FINDINGS Left (finding-1): Upper at 12:00, Retroareolar, measuring 0.6 x 0.4 x 0.7 cm: Correlating with findings on mammogram there is a complicated cyst with low level echoes showing no posterior acoustic features. Doppler shows no vascularity. IMPRESSION: Left (Complicated Cyst): Upper at 12:00, Retroareolar, measuring 0.6 x 0.4 x 0.7 cm * Probably Benign. RECOMMENDATIONS Left: Upper at 12:00, Retroareolar * Six month followup with diagnostic mammography. * Six month followup with diagnostic ultrasound. OVERALL ASSESSMENT CATEGORY BI-RADS-3: Probably Benign. ELECTRONICALLY SIGNED: Az Cantu M.D. on 08/25/2024 at 10:41:33 AM PT Interpreting Station ID: [id number]
== END ==
LOC: MAMMO 08:45
PROVIDERS: PCP Registered Nurse Diabetes Educator; Referring Provider Physician Assistant; Visit Provider Physician Assistant
DX: R92.8 Other abnormal and inconclusive findings on diagnostic imaging of breast (principal); N60.02 Solitary cyst of left breast; R92.333 Mammographic heterogeneous density, bilateral breasts
CPT/HCPCS: 76642; 77065; G0279

== ENCOUNTER → 2024-11-04 14:13 | Outpatient (CLI) | payer OTHER, SELFPAY ==
--- NOTE | 2024-11-04 | PATH_ITS ---
Note [facility] Accession Number: [id number] TESTS RESULT FLAG UNITS REF RANGE LAB Clinician Provided Cytology Information No. of containers..01 Other (Miscellaneous) No. of containers..01 Previously Prepared Cytology Slide Source: LEFT THYROID NODULE #1 DIAGNOSIS: LEFT THYROID NODULE #1, FINE NEEDLE ASPIRATION. NEGATIVE FOR MALIGNANT CELLS. BETHESDA CATEGORY II. SPECIMEN CONSISTS OF A PREDOMINANT, AND HETEROGENEOUS LYMPHOID POPULATION, FEW FOLLICULAR GROUPS WITH ONCOCYTIC/HURTHLE CELL-LIKE CHANGES AND COLLOID. THESE FINDINGS RAISE THE POSSIBILITY OF LYMPHOCYTIC (PARISA) THYROIDITIS, IN THE PROPER CLINICAL CONTEXT. ANOTHER CONSIDERATION INCLUDES SAMPLING OF AN INTRATHYROIDAL LYMPH NODE. CLINICAL CORRELATION AND CORRELATION WITH LABORATORY TESTS IS RECOMMENDED, AND IF THE NODULE INCREASES IN SIZE, RE-ASPIRATION IS SUGGESTED. FLOW CYTOMETRY MAY ALSO BE CONSIDERED, IF THE NODULE INCREASES SIGNIFICANTLY TO EVALUATE FOR POSSIBLE ATYPICAL LYMPHOID POPULATION. 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, E04.2 Signed out by: Ty Partida MD, Pathologist NPI- [id number] Performed by: Francisco Main, Senior Training Specialist ([facility]) Gross description: 01 30 CC, PINK, CLEAR RECIEVED: IN CYTOLYT WITH 5 ALCOHOL FIXED AND 6 QUICK STAINED SLIDES ALSO 1 RNA VIAL WILL ON 05-10-2026.VO /VDU 11/05/2024 0739 Local FLAG LEGEND: L-Low Normal,H-High Normal,LL-Alert Low,HH-Alert High <-Panic Low,>-Panic High,A-Abnormal,AA-Critical Abnormal Performed at: 01 [address] [facility], [place] [address] Clint Rodrigues MD, Performed at: [address], [place], [place] [id number] MD Clint Rodrigues MD Phone: [phone]
--- NOTE | 2024-11-04 | PATH_ITS ---
Note [facility] Accession Number: [id number] TESTS RESULT FLAG UNITS REF RANGE LAB Clinician Provided Cytology Information No. of containers..01 Other (Miscellaneous) No. of containers..02 Previously Prepared Cytology Slide Source: RIGHT THYROID NODULE #2 DIAGNOSIS: RIGHT THYROID NODULE #2, FINE NEEDLE ASPIRATION. NEGATIVE FOR MALIGNANT CELLS. BENIGN FOLLICULAR (GOITEROUS) NODULE (BETHESDA CATEGORY II), SEE COMMENT. COMMENT: MICROSCOPIC EXAMINATION REVEALS A MILDLY CELLULAR ASPIRATE, COMPOSED OF COLLOID AND FOLLICULAR GROUPS WITHOUT SIGNIFICANT CYTOLOGIC OR ARCHITECTURAL ATYPIA. THESE FINDINGS SUPPORT A BENIGN FOLLICULAR (GOITEROUS) NODULE. CORRELATION WITH CLINICAL AND RADIOGRAPHIC FINDINGS IS RECOMMENDED. ACCORDING TO THE BETHESDA REPORTING SYSTEM FOR THYROID CYTOPATHOLOGY, THE RISK OF MALIGNANCY IN THE CATEGORY BENIGN-CATEGORY II IS 0-3%; THEREFORE RECOMMEND CONTINUED ULTRASOUND SURVEILLANCE WITH REPEAT FNA IF THE NODULE SIGNIFICANTLY INCREASES IN SIZE. Pathologist ICD10: 01 E04.1 Signed out by: Ty Partida MD, Pathologist NPI- [id number] Performed by: Kleber Graham, Fuel Quality Tech ([facility]) Gross description: 30 CC, RED, CLOUDY RECIEVED: IN CYTOLYT WITH 6 ALCOHOL FIXED AND 6 QUICK STAINED SLIDES ALSO 1 RNA VIAL WILL ON 05-10-2026.VO /VDU 11/05/2024 0740 Local FLAG LEGEND: L-Low Normal,H-High Normal,LL-Alert Low,HH-Alert High <-Panic Low,>-Panic High,A-Abnormal,AA-Critical Abnormal Performed at: 01 =[address] [facility], [place] [address] Clint Rodrigues MD, Performed at: [address] [address], [place], [place] [id number] MD Clint Rodrigues MD Phone: [phone]
--- NOTE | 2024-11-04 14:16 | DI.US.S_ITS ---
PROCEDURE: US FINE NEEDLE ASPIRATION INDICATIONS: eval/treat, FNA nodules 1 and 2 TECHNIQUE: The indications, alternatives, benefits, risks, and complications of the procedure were explained to the patient. Written informed consent was obtained and placed in the chart. The thyroid region was examined sonographically and a site was chosen for ultrasound guided percutaneous sampling. The skin was prepared and draped in the usual fashion, and anesthetized with 1% lidocaine infiltrated from the skin down to the thyroid gland. Multiple passes were then performed, with contents emptied into an appropriate pathology specimen container. A bandage was applied to the area of access at completion of the study. COMPARISON: [facility], US, US THYROID, 01/23/2024, 10:52. [facility], US, US THYROID, 03/12/2022, 10:48. FINDINGS: Location(s) of lesion(s) sampled: #1 Left mid thyroid nodule measuring 2.5 cm. [place]: 25 gauge hypodermic needles x5. 21 gauge hypodermic needles x1. Medications: 1% lidocaine for local anaesthesia. Complications: None. Location(s) of lesion(s) sampled: #2 Right superior thyroid nodule measuring 3.4 cm. [place]: 25 gauge hypodermic needles x5. 21 gauge hypodermic needles x1. Medications: 1% lidocaine for local anaesthesia. Complications: None. IMPRESSION: Successful ultrasound-guided thyroid nodule fine needle aspiration, with cytology results pending. Please see chart below for management recommendations based on cytology results. [facility] ReportingRecommendationsNon-diagnostic* Repeat US-guided FNA, with on-site cytology evaluation if possible. * Repeated non-diagnostic nodules without high suspicion US features: close observation vs surgical consult. * Consider surgery if nodule has high suspicion US features, grows >20% in 2 dimensions on followup, or patient has clinical risk factors for malignancy. Benign* If nodule has high suspicion US features: repeat US and FNA within 12 months. * If nodule has low to intermediate suspicion US features: repeat US at 12-24 months. If nodule grows (20% increase in at least 2 dimensions, with minimal increase of 2 mm or >50% change in volume), or development of new suspicious US features, then repeat FNA or continue followup. * If nodule has very low suspicion US features: followup US at >24 months. Atypia of undetermined significance, follicular lesion of undetermined significanceRepeat FNA, molecular testing, followup US, or surgical consult.Follicular neoplasm, suspicious for follicular neoplasmSurgical consult; also consider molecular testing. Suspicious for malignancySurgical consult.MalignantSurgical consult. Dictated by: Alan Moreno M.D. on 11/04/2024 at 17:57 Approved by: Alan Moreno M.D. on 11/04/2024 at 17:59
== END ==
LOC: US 14:14
PROVIDERS: PCP Registered Nurse Diabetes Educator; Visit Provider Radiology Diagnostic Radiology
DX: E04.2 Nontoxic multinodular goiter (principal); E05.90 Thyrotoxicosis, unspecified without thyrotoxic crisis or storm
CPT/HCPCS: 10005; 10006

== ENCOUNTER → 2025-01-13 09:54 | Outpatient (CLI) | payer OTHER, SELFPAY ==
[2025-01-13 11:20] LABS: Hematocrit 40.5 % (36-46); Hemoglobin 13.6 g/dL (12.0-16.0); Mean Corpuscular HGB Conc 33.5 % (30-36); Mean Corpuscular Hemoglobin 28.8 PG (26-34); Mean Corpuscular Volume 85.8 fL (80-100); Platelet Count 206 X10^3/uL (150-400)
[2025-01-13 11:44] LABS: Hemoglobin A1C% w Est Avg Glu 5.4 % (4.0-6.0)
[2025-01-13 12:02] LABS: Alanine Aminotransferase 14 IU/L (<35); Albumin 4.1 g/dL (3.5-5.0); Albumin Globulin Ratio 1.4 (1.0-2.8); Alkaline Phosphatase 77 U/L (38-126); Blood Urea Nitrogen 17 mg/dL (7-17); Calcium 9.1 mg/dL (8.4-10.2); Carbon Dioxide 25 mmol/L (22-32); Chloride 103 mmol/L (98-107); Cholesterol 253 mg/dL (140-199); Estimated Glomerular Filt Rate > 60 mL/min (>60); Globulin 3.0 g/dL (1.7-4.1); Glucose 91 mg/dL (70-99); HDL Cholesterol 57 mg/dL (40-60); HEMOLYSIS < 15 (0-50); Potassium 4.6 mmol/L (3.4-5.1); Sodium 136 mmol/L (137-145); Total Protein 7.1 g/dL (6.3-8.2); Triglycerides 105 mg/dL (35-150)
[2025-01-13 12:16] LABS: Vitamin D 25 Hydroxy (D3) 25.5 ng/mL (30.0-100.0)
[2025-01-13 12:19] LABS: Free T4, Direct Thyroxine 1.12 ng/dL (0.78-2.19)
[2025-01-13 12:34] LABS: Thyroid Stimulating Hormone < 0.015 uIU/mL (0.47-4.68)
== END ==
PROVIDERS: PCP Registered Nurse Diabetes Educator; Referring Provider Registered Nurse Diabetes Educator; Visit Provider Registered Nurse Diabetes Educator
DX: E78.5 Hyperlipidemia, unspecified (principal); Z86.39 Personal history of other endocrine, nutritional and metabolic disease; E05.90 Thyrotoxicosis, unspecified without thyrotoxic crisis or storm; R73.01 Impaired fasting glucose
CPT/HCPCS: 36415; 80053; 80061; 82306; 83036; 84439; 84443; 84480; 85027

== ENCOUNTER → 2025-02-02 14:02 | Outpatient (CLI) | payer OTHER, SELFPAY ==
[2025-02-02 14:43] LABS: Alanine Aminotransferase 13 IU/L (<35); Albumin 4.1 g/dL (3.5-5.0); Albumin Globulin Ratio 1.3 (1.0-2.8); Alkaline Phosphatase 71 U/L (38-126); Globulin 3.1 g/dL (1.7-4.1); HEMOLYSIS < 15 (0-50); Total Protein 7.2 g/dL (6.3-8.2)
== END ==
PROVIDERS: Physician Assistant; PCP Registered Nurse Diabetes Educator; Referring Provider Registered Nurse Diabetes Educator; Visit Provider Registered Nurse Diabetes Educator
DX: B35.1 Tinea unguium (principal)
CPT/HCPCS: 36415; 80076